=== PATIENT | male | born 2000 | race Caucasian/White ===

== ENCOUNTER 2021-02-04 11:20 | Emergency (ER) | payer BC ==
[2021-02-04 11:28] VITALS: BP 148/97; O2SAT 98
[2021-02-04] MEDS ORDERED: BACIGUENT PACKET ONE (11:56)
[2021-02-04] MEDS ORDERED: BACIGUENT PACKET TP ONE (11:58)
[2021-02-04] MEDS ORDERED: XYLOCAINE 1% HCL 20 ML MDV ONE (11:59)
[2021-02-04] MEDS ORDERED: XYLOCAINE 2% HCL 20 ML MDV IJ ONE (11:59)
--- NOTE | 2021-02-04 11:59 | ERPHSYRPT ---
- History of Present Illness Time Seen by Provider: 02/04/21 11:26 Source: patient Exam Limitations: no limitations Patient Subjective Stated Complaint: Laceration Triage Nursing Assessment: Patient ambulated back to ED and transferred self to bed. Patient A+O X3. Patient's skin pink, warm and dry. Patient complains of laceration to the bridge of nose. Patient states he was working on an excavator when a pry bar came back and hit him in the face. Laceration noted to bridge of nose 1.5 cm. Patient currently denies pain or discomfort. Physician History: Patient is a 20-year-old male presents to our ED for evaluation of laceration to the proximal aspect of the bridge of his nose, in between the eyes. Patient states he was working on an excavator. Patient was using a pry bar with a pry bar jerked back and lacerated the area between the eyes and the proximal aspect of the bridge of the nose. Injury occurred just prior to arrival. Patient has no discomfort. He does have a moderate headache. No nausea or vomiting. No blurred vision. There was no injury to the globe. No numbness tingling or weakness. Symptoms are mild to moderate in intensity. No specific worsening improving factors. Patient declined pain medication. Patient states his tetanus is up-to-date. Patient is otherwise healthy. He voices no other complaints or concerns at this time. Occurred: just prior to arrival Severity: moderate Head Injury Location: frontal Method of Injury: direct blow Loss of Consciousness: no loss of consciousness Associated Symptoms: headaches, No nausea, No vomiting, No syncope Allergies/Adverse Reactions: No Known Drug Allergies Allergy (Verified 02/04/21 11:23) Hx Tetanus, Diphtheria Vaccination/Date Given: Yes Hx Influenza Vaccination/Date Given: No Hx Pneumococcal Vaccination/Date Given: No Immunizations Up to Date: Yes Travel Risk - International Travel Have you traveled outside of the country in past 3 weeks: No - Coronavirus Screening Are you exhibiting any of the following symptoms?: No Close contact with a COVID-19 positive Pt in past 14-21 Days: No - Review of Systems Constitutional: No Symptoms, No Fever, No Chills Eyes: No Symptoms Ears, Nose, & Throat: No Symptoms Respiratory: No Symptoms, No Cough, No Dyspnea Cardiac: No Symptoms, No Chest Pain, No Edema, No Syncope Abdominal/Gastrointestinal: No Symptoms, No Abdominal Pain, No Nausea, No Vomiting, No Diarrhea Genitourinary Symptoms: No Symptoms, No Dysuria Musculoskeletal: No Symptoms, No Back Pain, No Neck Pain Skin: No Symptoms, No Rash Neurological: No Symptoms, No Dizziness, No Focal Weakness, No Sensory Changes Psychological: No Symptoms Endocrine: No Symptoms Hematologic/Lymphatic: No Symptoms Immunological/Allergic: No Symptoms All Other Systems: Reviewed and Negative - Past Medical History Pertinent Past Medical History: No Neurological History: No Pertinent History ENT History: No Pertinent History Cardiac History: No Pertinent History Respiratory History: No Pertinent History Endocrine Medical History: No Pertinent History Musculoskeletal History: No Pertinent History GI Medical History: No Pertinent History History: No Pertinent History Psycho-Social History: No Pertinent History Male Reproductive Disorders: No Pertinent History Other Medical History: allergies - Past Surgical History Past Surgical History: No Neuro Surgical History: No Pertinent History Cardiac: No Pertinent History Respiratory: No Pertinent History Gastrointestinal: No Pertinent History Genitourinary: No Pertinent History Musculoskeletal: No Pertinent History Male Surgical History: No Pertinent History - Social History Smoking Status: Never smoker Exposure to second hand smoke: No Drug Use: none Patient Lives Alone: Yes - Nursing Vital Signs Nursing Vital Signs: Initial Vital Signs Temperature 97.8 F 02/04/21 11:24 Pulse Rate 97 H 02/04/21 11:24 Respiratory Rate 18 02/04/21 11:24 Blood Pressure 148/97 02/04/21 11:24 O2 Sat by Pulse Oximetry 98 02/04/21 11:24 Pain Scale Pain Intensity 0 - [place] Coma Score Best Eye Response (Meagan): (4) open spontaneously Best Verbal Response ([place]): (5) oriented Best Motor Response (Meagan): (6) obeys commands Meagan Total: 15 - Physical Exam General Appearance: no apparent distress, alert Eye Exam: bilateral eye: normal inspection, PERRL, EOMI ENT Exam: airway nml, evidence of ENT injury, No dental injury, No clear fluid (ears), No clear fluid (nose), No midface instability, No hemotympanum, No hearing grossly normal, No TM obscured by wax, No clotted nasal blood, No malocclusion, No oral injury Neck Exam: supple, trachea midline, full range of motion, normal alignment, normal inspection, No stiff neck Cardiovascular/Respiratory Exam: chest non-tender, normal breath sounds, regular rate/rhythm Gastrointestinal/Abdominal Exam: soft, non tender, no distention, no mass, no guarding Back Exam: normal inspection, No vertebral tenderness Extremity Exam: non-tender, normal range of motion, normal inspection Mental Status Exam: alert, oriented x 3, cooperative wall taper Exam: normal hearing, normal speech, PERRL, No abnormal eye position, No abnormal gag reflex, No abnormal pupil position, No abnormal speech, No facial asymmetry, No facial droop, No facial paresthesias, No facial weakness, No gaze palsy, No hearing deficit (R), No hearing deficit (L), No tongue deviation to R, No tongue deviation to L, No tongue midline Coordination/Gait Exam: normal finger to nose, normal gait, normal cerebellar function, No abnormal gait, No ABN nose to finger (R), No ABN nose to finger (L) Motor/Sensory Exam: no motor deficit, no sensory deficit, CN II-XII intact Skin Exam: normal color, warm, dry, No rash SpO2 Interpretation: normal SpO2: 98 O2 Delivery: Room Air Procedures - Laceration/Wound Repair Medial Frontal Time of Procedure: 11:15 Wound Location: forehead (The wound is located in between the eyes proximal aspect of the nasal bridge.) Wound Length (cm): 1.5 Wound's Depth, Shape: stellate (The wound is composed of 2 adjacent stellate lesions. The wound appears relatively deep. CT face ordered.) Wound Explored: clean Irrigated: Yes Hibiclens Prep: Yes Anesthesia: local, 1% Lidocaine Volume Anesthetic (ccs): 3 Wound Debrided: No debridement indicated. Wound Repaired With: sutures Suture Size/Type: 6-0, nylon Number of Sutures: 6 Layer Closure?: No Sterile Dressing Applied?: Yes Splint Applied?: No Progress: 02/04/21 12:03 Patient tolerated procedure well. No adverse reaction observed to medication/local anesthetic to stellate wounds adjacent to each other. This created a bridge of skin which has increased risk of necrosis. This may pot entially lead to poor cosmesis. I discussed cosmetics with patient. Patient is aware that he will likely develop a scar at this location. We approximated the skin edges and perform wound closure to the best of our abilities. The skin edges were well aligned. Due to injury involving a pry bar which was likely contaminated microscopically we will treat patient with antibiotics as well. Tetanus is up-to-date no indication for tetanus update at this time. - Course Nursing assessment & vital signs reviewed: Yes - CT Exams Head CT Interpretation: Tele-radiologist Report (Normal CT head without contrast exam.) Maxillofacial Bones CT Interpretation: Tele-radiologist Report (Left nasal soft tissue swelling/laceration. Remaining CT facial bones negative.) Ordered Tests: Active Orders 24 hr Category Date Time Status Wound Care STAT Care 02/04/21 11:58 Active FACIAL BONES WO CONTRAST [CT] Stat Exams 02/04/21 11:34 Completed HEAD WITHOUT CONTRAST [CT] Stat Exams 02/04/21 11:36 Completed Medication Summary Discontinued Medications Generic Name Dose Route Start Last Admin Trade Name Freq PRN Reason Stop Dose Admin Bacitracin Zinc Confirm 02/04/21 11:56 Baciguent Packet Administered 02/04/21 11:57 Dose 1 gm .ROUTE .STK-MED ONE Bacitracin Zinc 0.9 gm 02/04/21 11:58 02/04/21 12:00 Baciguent Packet TP 02/04/21 11:59 0.9 gm STAT ONE Administration Lidocaine HCl 5 ml 02/04/21 11:59 02/04/21 12:00 Xylocaine 2% Hcl 20 Ml Mdv IJ 02/04/21 12:00 Not Given STAT ONE Lidocaine HCl 5 ml 02/04/21 12:01 02/04/21 12:01 Xylocaine 1% Hcl 20 Ml Mdv IJ 02/04/21 12:02 5 ml STAT ONE Administration Lidocaine HCl Confirm 02/04/21 11:59 Xylocaine 1% Hcl 20 Ml Mdv Administered 02/04/21 12:00 Dose 5 ml .ROUTE .STK-MED ONE - Progress Progress: improved Progress Note: Patient reassessed. He feels well. Patient denies pain. CT head and facial bones negative for fracture dislocation. No intracranial pathology observed. Tetanus is up-to-date. Prescription for Keflex for the patient's pharmacy. Sutures are to be removed in 7 days. Patient agrees to follow-up with his primary care doctor within 48 hours for reevaluation. He voices no other complaints or concerns at this time. Due to the head trauma and patient headache we will implement concussion precautions. Patient voiced a clear understanding. He has no other concerns, questions or complaints at this time. 02/04/21 12:27 Counseled pt/family regarding: diagnosis, need for follow-up, rad results - Departure Departure Disposition: Home Clinical Impression: Head injury, Concussion, Laceration Condition: Stable Critical Care Time: No Referrals: DENY CURIEL FNP [Primary Care Provider] - Additional Instructions: Discharge/Care Plan MADISON ROJO was seen on 02/04/21 in the Emergency Room. The patient was counseled regarding Diagnosis,Lab results, Imaging studies, need for follow up and when to return to the Emergency Room. Prescriptions given: Discharge Note I have spoken with the patient and/or caregivers. I have explained the patient's condition, diagnosis and treatment plan based on the information available to me at this time. I have answered the patient's and/or caregiver's questions and addressed any concerns. The patient and/or caregivers have as good understanding of the patient's diagnosis, condition and treatment plan as can be expected at this point. The vital signs have been stable. The patient's condition is stable and appropriate for discharge from the emergency department. The patient will pursue further outpatient evaluation with the primary care physician or other designated or consulting physician as outlined in the discharge instructions. The patient and/or caregivers are agreeable to this plan of care and follow-up instructions have been explained in detail. The patient and/or caregivers have received these instruction. The patient/and or caregivers are aware that any significant change in condition or worsening of symptoms should prompt an immediate return to this or the closest emergency department or call 911. Prescriptions: Cephalexin Mh 500 mg [Keflex 500 mg] 500 mg PO TID 7 Days #21 capsule
[2021-02-04] MEDS ORDERED: XYLOCAINE 1% HCL 20 ML MDV IJ ONE (12:01)
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
[2021-02-04 12:35] VITALS: PULSE 88
== END 2021-02-04 12:36 | disposition home or self-care (01) ==
LOC: ED 11:20
DX: S00.33XA Contusion of nose, initial encounter (principal); S01.21XA Laceration without foreign body of nose, initial encounter; S06.0X0A Concussion without loss of consciousness, initial encounter; W22.8XXA Striking against or struck by other objects, initial encounter
CPT/HCPCS: 12011; 70450; 70486; 96372; 99284; A9270-GY

== ENCOUNTER 2023-04-30 03:52 | Emergency (ER) | payer BC ==
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
[2023-04-30 04:18] VITALS: BP 146/90; PULSE 110; O2SAT 97
== END 2023-04-30 04:45 | disposition home or self-care (01) ==
LOC: ED 03:52 → EEVIPCON 03:52 → ED 04:45
DX: Z02.89 Encounter for other administrative examinations (principal)
CPT/HCPCS: 99282